=== PATIENT | male | born 1995 | race Caucasian/White ===

== ENCOUNTER 2019-11-08 06:02 | Inpatient (IN) | payer OTHER ==
[2019-11-08] MEDS ORDERED: Lidocaine 1% PF 5 ML VIAL ONE ×2 (06:16→10:34)
[2019-11-08 06:39] LABS: #Lymphocytes 1.2 thou/uL (1.20-3.40); #Monocytes 0.9 thou/uL (0.11-0.59); #Neutrophils 10.3 thou/uL (1.40-6.50); %Basophils 0.1 % (0.0-1.0); %Eosinophils 0.3 % (0.0-10.0); %Lymphocytes 9.9 % (21.0-51.0); %Monocytes 7.3 % (0.0-10.0); %Neutrophils 82.3 % (42.0-75.0); Hemoglobin 14.4 g/dL (14.0-18.0); Mean Corpuscular HGB CONC 34.5 g/dL (32.0-36.0); Mean Corpuscular Hemoglobin 29.8 pg (27.0-31.0); Mean Corpuscular Volume 86.2 fL (78.0-98.0); Mean Platelet Volume 9.1 fL (7.4-10.4); Platelet Count 218 thou/uL (130-400); RBC Distribution Width 10.9 % (11.5-14.5); Red Blood Cell (RBC) Count 4.84 mill/uL (4.70-6.10); White Blood Cell (WBC) Count 12.5 thou/uL (4.8-10.8)
[2019-11-08 06:44] LABS: PTT 25.1 SEC (22.9-36.1); Prothrombin Time 13.5 SEC (12.0-14.7)
[2019-11-08 07:02] LABS: ALT (SGPT) 41 U/L (8-55); AST (SGOT) 69 U/L (5-34); Albumin 4.5 g/dL (3.5-5.0); Alcohol 214 mg/dL (Less than 10); Alkaline Phosphatase 75 U/L (40-110); Anion Gap 15 mmol/L (10-20); BUN (Urea Nitrogen) 10 mg/dL (8.9-20.6); Bilirubin, Total 0.2 mg/dL (0.2-1.2); Calc. Creatinine Clearance 0 mL/min (70-130); Calcium 8.4 mg/dL (7.8-10.44); Carbon Dioxide 27 mmol/L (22-29); Chloride 103 mmol/L (98-107); Estimated GFR-MDRD 81; Globulin 2.4 g/dL (2.4-3.5); Glucose 115 mg/dL (70-105); Lipase 27 U/L (8-78); Potassium 3.8 mmol/L (3.5-5.1); Protein, Total 6.9 g/dL (6.0-8.3); Sodium 141 mmol/L (136-145)
[2019-11-08] MEDS ORDERED: Adacel (T-DAP) 0.5 ML SYRINGE ONE (07:03)
[2019-11-08] MEDS ORDERED: Bacitracin 1 PK ONE (07:48)
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
--- NOTE | 2019-11-08 08:00 | RAD ---
XR Forearm Lt 2 View STANDARD History: Deformity Comparison: None. Findings: Intra-articular fracture, sagittally oriented, through the distal humeral condyles. The for earm itself is intact. Impression: Intact for with fracture through the distal humeral metadiaphysis extending through the a rticular surface between the capitellum and trochlea.
--- NOTE | 2019-11-08 08:04 | RAD ---
XR Humerus Lt 2 View STANDARD History: Deformity Comparison: None. Findings: Intra-articular fracture distal humerus in medial sagittal orientation with fragmentary tra ns trochlear component. Impression: Intra-articular fracture distal humerus medial sagittal orientation with fragmentary mayo s trochlear extension.
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
[2019-11-08] MEDS ORDERED: Dextrose 5% in Water 1,000 ML IV PRN (09:04)
[2019-11-08] MEDS ORDERED: Dextrose 50% Abboject 50 ML SYRINGE SLOW IVP PRN (09:04)
[2019-11-08] MEDS ORDERED: Morphine 4 MG/ML VIAL SLOW IVP PRN (09:04)
[2019-11-08] MEDS ORDERED: Ondansetron PF 4 MG/2 ML Vial IVP PRN (09:04)
[2019-11-08] MEDS ORDERED: hydrALAZINE 20 MG/ML VIAL SLOW IVP PRN (09:04)
[2019-11-08] MEDS ORDERED: Morphine 2 MG/ML SYRINGE SLOW IVP PRN (09:04)
[2019-11-08 09:08] LABS: Bacteria/HPF None Seen HPF (None Seen); Bilirubin Negative (Negative); Blood, Urine Trace (Negative); Clarity Clear (Clear); Glucose, Urine (Dipstick) Normal (Negative); Leukocyte Negative Leu/uL (Negative); Nitrite Negative (Negative); Protein, Urine (Dipstick) Negative (Neg-Trace); RBC/HPF 0-3 HPF (0-3); Squamous Epithelial 0-3 HPF (0-3); Urobilinogen Normal mg/dL (Less than 2); WBC/HPF 0-3 HPF (0-3)
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
--- NOTE | 2019-11-08 09:40 | RAD ---
LEFT ELBOW 2 VIEWS: INDICATION: Left arm pain. FINDINGS: Since the comparison examination, there has been interval placement of a posterior splint involving t he left elbow. The supracondylar and intercondylar distal left humeral fracture is not appreciably c hanged in position when compared to a forearm radiograph evaluation dated 11/08/2019. Soft tissue swel ling is seen involving the left elbow. IMPRESSION: Comminuted supracondylar and intercondylar distal left humeral fracture with interval placement of a posterior splint. POS: OFF
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
[2019-11-08 10:15] LABS: Lactic Acid 2.5 mmol/L (0.5-2.2)
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
[2019-11-08] MEDS ORDERED: Rocuronium Bromide 10 MG/ML (10ML VIAL) ONE (10:34)
[2019-11-08] MEDS ORDERED: Ondansetron PF 4 MG/2 ML Vial ONE (10:34)
[2019-11-08] MEDS ORDERED: PROPOFOL 200 MG/20 ML VIAL ONE (10:34)
[2019-11-08] MEDS ORDERED: Ketorolac Tromethamine 30 MG/ML VIAL ONE (10:34)
[2019-11-08 10:40] LABS: Amphetamine Not Detected (NotDetected); Barbiturates Screen Not Detected (NotDetected); Benzodiazepine Screen Not Detected (NotDetected); Cocaine Metabolite Screen Not Detected (NotDetected); Medtox Control Line Valid? VALID (VALID); Medtox Reader # READER 4; Methadone Not Detected (NotDetected); Methamphetamine Not Detected (NotDetected); Opiate Screen Not Detected (NotDetected); Oxycodone Screen Not Detected (NotDetected); Phencyclidine (PCP) Not Detected (NotDetected); THC/Cannabinoid Screen Not Detected (NotDetected); Tricyclic Screen Not Detected (NotDetected)
[2019-11-08] MEDS ORDERED: CEFAZOLIN 2 GM in Premix Bag 1 BAG IVPB SCH (11:15)
[2019-11-08 11:30] VITALS: BMI 28.7
[2019-11-08] MEDS ORDERED: Bupivacaine PF 0.5% 30 ML VIAL ONE (12:17)
[2019-11-08] MEDS ORDERED: Lidocaine 1% w/Epinephrine 1:100K 20 ML VIAL ONE (12:17)
[2019-11-08] MEDS ORDERED: Fentanyl 100 MCG/2 ML VIAL ONE ×2 (12:58→13:47)
--- NOTE | 2019-11-08 13:47 | PRG ---
DATE OF SERVICE: 11/08/2019 I returned to the hospital to examine Mr. Lopez. He is currently under anesthesia having his elbow operated upon. I am going to follow up with Mr. Lopez in the early hours of the morning tomorrow. His transverse process fractures need no treatment whatsoever. His widening of the interspinous ligament between T12 and L1 and the question of facet injury can be treated with extension bracing. The joint extension brace is least bulky and will provide extension between the chest and pelvis. This can be applied supine. If it is applied sitting, he will need to be reminded to be in extension while it is being applied. If he is resting in bed, he does not need it at all. CT examination of the brain is negative. Cervical spine is negative and the rest of the thoracic and lumbar spine is negative other than the aforementioned injuries. When he is no longer inebriated and not under the influence of anesthesia, then his cervical spine can be cleared either by the Trauma Service or by me tomorrow morning. Job ID: [id number]
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
--- NOTE | 2019-11-08 15:22 | RAD ---
LEFT ELBOW TWO VIEWS: INDICATIONS: History of distal left humerus fracture. COMPARISON: 11/08/2019 at 6:36 a.m. FINDINGS: Since the comparison examination there has been interval open reduction and internal fixation of the comminuted supracondylar and distal humerus fracture with an intercondylar split. Instrumentation pro jects in the expected position without gross evidence of complication. IMPRESSION: Interval open reduction and internal fixation of the distal left humerus fracture. POS: OFF
[2019-11-08] MEDS ORDERED: Iopamidol-370 76% 500 ML 1 ML ONE (15:32)
[2019-11-08] MEDS ORDERED: Ondansetron HCl/PF 4 MG/2 ML Vial IVP PRN (15:51)
[2019-11-08] MEDS ORDERED: Promethazine HCl 25 MG/ML VIAL IM PRN (15:51)
[2019-11-08] MEDS ORDERED: Promethazine HCl 25 MG/ML VIAL SLOW IVP PRN (15:51)
[2019-11-08] MEDS ORDERED: traMADol HCl 50 MG TAB PO PRN ×2 (16:17)
[2019-11-08] MEDS: Sodium Chloride 0.9% 1,000 ML IV SCH ×2 (17:29→17:31)
[2019-11-08] MEDS: Acetaminophen 500 MG TAB PO SCH ×2 (17:32→23:41)
[2019-11-08] MEDS: Morphine 4 MG/ML VIAL SLOW IVP PRN ×2 (17:40→22:01)
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
[2019-11-08] MEDS: Gabapentin 300 MG CAP PO SCH (20:31)
[2019-11-08] MEDS: CEFAZOLIN 2 GM in Premix Bag 1 BAG IVPB SCH (20:31)
[2019-11-08] MEDS: Senokot S 8.6-50 MG TAB PO SCH (20:33)
[2019-11-08] MEDS ORDERED: Famotidine/PF 20 mg/2ml Vial SLOW IVP SCH (21:00)
[2019-11-08] MEDS ORDERED: Famotidine 20 MG TAB PO SCH (21:00)
[2019-11-08] MEDS: Ibuprofen 800 MG TAB PO SCH (21:31)
[2019-11-08] MEDS: Cyclobenzaprine 10 MG TAB PO PRN (22:47)
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
[2019-11-08] MEDS: traMADol HCl 50 MG TAB PO SCH (23:41)
[2019-11-09] MEDS: Sodium Chloride 0.9% 1,000 ML IV SCH (01:06)
[2019-11-09] MEDS: CEFAZOLIN 2 GM in Premix Bag 1 BAG IVPB SCH (03:36)
[2019-11-09 04:04] LABS: #Eosinphils 0.1 thou/uL (0.0-0.7); #Lymphocytes 1.5 thou/uL (1.20-3.40); #Monocytes 0.5 thou/uL (0.11-0.59); #Neutrophils 2.8 thou/uL (1.40-6.50); %Basophils 0.4 % (0.0-1.0); %Eosinophils 2.1 % (0.0-10.0); %Monocytes 10.9 % (0.0-10.0); %Neutrophils 56.6 % (42.0-75.0); Hemoglobin 11.5 g/dL (14.0-18.0); Mean Corpuscular HGB CONC 34.7 g/dL (32.0-36.0); Mean Corpuscular Hemoglobin 30.5 pg (27.0-31.0); Mean Corpuscular Volume 87.8 fL (78.0-98.0); Mean Platelet Volume 8.8 fL (7.4-10.4); Platelet Count 151 thou/uL (130-400); RBC Distribution Width 10.9 % (11.5-14.5); Red Blood Cell (RBC) Count 3.76 mill/uL (4.70-6.10); White Blood Cell (WBC) Count 4.9 thou/uL (4.8-10.8)
[2019-11-09 04:29] LABS: Lactic Acid 0.8 mmol/L (0.5-2.2)
[2019-11-09 04:36] LABS: Anion Gap 10 mmol/L (10-20); BUN (Urea Nitrogen) 11 mg/dL (8.9-20.6); Calc. Creatinine Clearance 195 mL/min (70-130); Calcium 7.7 mg/dL (7.8-10.44); Carbon Dioxide 27 mmol/L (22-29); Chloride 108 mmol/L (98-107); Estimated GFR-MDRD Greater than 90; Glucose 95 mg/dL (70-105); Magnesium 1.6 mg/dL (1.6-2.6); Phosphorus 3.2 mg/dL (2.3-4.7); Potassium 3.7 mmol/L (3.5-5.1); Sodium 141 mmol/L (136-145)
[2019-11-09] MEDS: Ibuprofen 800 MG TAB PO SCH (05:52)
[2019-11-09] MEDS: Acetaminophen 500 MG TAB PO SCH ×4 (05:52→20:28)
[2019-11-09] MEDS: traMADol HCl 50 MG TAB PO SCH (05:52)
[2019-11-09] MEDS: Morphine 4 MG/ML VIAL SLOW IVP PRN (06:43)
[2019-11-09] MEDS ORDERED: Magnesium 2 GM/50 ML 2 GM in Premix Bag 1 BAG IVPB SCH (07:45)
[2019-11-09] MEDS ORDERED: Potassium Phosphate 15 MMOL in Sodium Chloride 0.9% 250 ML 250 ML IVPB SCH (07:45)
[2019-11-09] MEDS ORDERED: HYDROcodone/Acetaminophen 10/325 mg Tablet PO PRN (08:12)
[2019-11-09] MEDS ORDERED: Ketorolac Tromethamine 30 MG/ML VIAL IVP SCH (08:15)
[2019-11-09] MEDS ORDERED: FLU VACC QS2019-20(6MOS UP)/PF 60 MCG/0.5 ML SYRINGE IM ONE (09:00)
[2019-11-09] MEDS: Gabapentin 300 MG CAP PO SCH ×3 (09:18→20:29)
[2019-11-09] MEDS: Senokot S 8.6-50 MG TAB PO SCH ×2 (09:19→20:29)
[2019-11-09] MEDS: Polyethylene Glycol 3350 17 GM Packet PO SCH (09:19)
--- NOTE | 2019-11-09 10:26 | RAD ---
PORTABLE CHEST ONE VIEW: 11/09/2019 5:01 a.m. HISTORY: Bilateral pulmonary contusions and tiny right pneumothorax. COMPARISON: 11/08/2019 FINDINGS: The heart size is normal. There is continued mild elevation of the right hemidiaphragm. No lobar cons olidation, definite pneumothorax or large effusions are seen. POS: [facility]
[2019-11-09] MEDS: Ketorolac Tromethamine 30 MG/ML VIAL IVP SCH ×3 (11:54→23:17)
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
[2019-11-09] MEDS ORDERED: traMADol HCl 50 MG TAB PO SCH (12:00)
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
[2019-11-09] MEDS: HYDROcodone/Acetaminophen 10/325 mg Tablet PO PRN ×2 (17:26→22:31)
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
[2019-11-09] MEDS: Enoxaparin Sodium 30 MG/0.3 ML SYRINGE SC SCH (20:28)
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
[2019-11-10] MEDS: Acetaminophen 325 MG TAB PO SCH ×4 (03:16→20:50)
[2019-11-10] MEDS: HYDROcodone/Acetaminophen 10/325 mg Tablet PO PRN ×3 (04:26→16:26)
[2019-11-10 05:31] LABS: #Eosinphils 0.1 thou/uL (0.0-0.7); #Lymphocytes 0.9 thou/uL (1.20-3.40); #Monocytes 0.5 thou/uL (0.11-0.59); #Neutrophils 3.4 thou/uL (1.40-6.50); %Basophils 0.7 % (0.0-1.0); %Lymphocytes 17.1 % (21.0-51.0); %Monocytes 10.3 % (0.0-10.0); %Neutrophils 68.9 % (42.0-75.0); Hemoglobin 11.1 g/dL (14.0-18.0); Mean Corpuscular HGB CONC 34.3 g/dL (32.0-36.0); Mean Corpuscular Hemoglobin 30.2 pg (27.0-31.0); Mean Corpuscular Volume 88.1 fL (78.0-98.0); Platelet Count 168 thou/uL (130-400); RBC Distribution Width 10.8 % (11.5-14.5); Red Blood Cell (RBC) Count 3.69 mill/uL (4.70-6.10)
[2019-11-10] MEDS: Ketorolac Tromethamine 30 MG/ML VIAL IVP SCH ×3 (05:45→17:55)
[2019-11-10 05:57] LABS: Anion Gap 13 mmol/L (10-20); BUN (Urea Nitrogen) 7 mg/dL (8.9-20.6); Calc. Creatinine Clearance 180 mL/min (70-130); Calcium 8.2 mg/dL (7.8-10.44); Carbon Dioxide 26 mmol/L (22-29); Chloride 105 mmol/L (98-107); Estimated GFR-MDRD Greater than 90; Glucose 121 mg/dL (70-105); Magnesium 1.7 mg/dL (1.6-2.6); Phosphorus 1.6 mg/dL (2.3-4.7); Potassium 3.6 mmol/L (3.5-5.1); Sodium 140 mmol/L (136-145)
[2019-11-10] MEDS ORDERED: Potassium Phosphate 30 MMOL in Sodium Chloride 0.9% 500 ML IVPB SCH (06:30)
[2019-11-10] MEDS ORDERED: Magnesium 2 GM/50 ML 2 GM in Premix Bag 1 BAG IVPB SCH (08:00)
--- NOTE | 2019-11-10 08:01 | RAD ---
XR Chest 1 View Portable HISTORY: Persistent fever and shallow breathing COMPARISON: Previous day FINDINGS: The heart size is normal. The lungs are well expanded without focal areas of consolidation, pneumothorax or pleural effusions. IMPRESSION: No radiographic evidence of acute cardiopulmonary process.
[2019-11-10] MEDS: Cyclobenzaprine 10 MG TAB PO PRN ×2 (08:25→16:26)
[2019-11-10] MEDS: Gabapentin 300 MG CAP PO SCH ×3 (08:25→20:50)
[2019-11-10] MEDS: Senokot S 8.6-50 MG TAB PO SCH ×2 (08:25→20:50)
[2019-11-10] MEDS: Enoxaparin Sodium 30 MG/0.3 ML SYRINGE SC SCH ×2 (08:25→20:51)
[2019-11-10] MEDS: Polyethylene Glycol 3350 17 GM Packet PO SCH (08:25)
[2019-11-10 09:17] LABS: Bacteria/HPF None Seen HPF (None Seen); Bilirubin Negative (Negative); Blood, Urine Negative (Negative); Clarity Clear (Clear); Glucose, Urine (Dipstick) Normal (Negative); Leukocyte Negative Leu/uL (Negative); Nitrite Negative (Negative); Protein, Urine (Dipstick) 100 mg/dL (Neg-Trace); Squamous Epithelial None Seen HPF (0-3); Urobilinogen Normal mg/dL (Less than 2)
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
[2019-11-11] MEDS: Ketorolac Tromethamine 30 MG/ML VIAL IVP SCH (00:17)
[2019-11-11] MEDS: Acetaminophen 325 MG TAB PO SCH ×4 (03:55→20:45)
[2019-11-11] MEDS: Cyclobenzaprine 10 MG TAB PO PRN (04:01)
[2019-11-11 05:10] LABS: Anion Gap 12 mmol/L (10-20); BUN (Urea Nitrogen) 6 mg/dL (8.9-20.6); Calc. Creatinine Clearance 195 mL/min (70-130); Calcium 8.3 mg/dL (7.8-10.44); Carbon Dioxide 29 mmol/L (22-29); Chloride 104 mmol/L (98-107); Estimated GFR-MDRD Greater than 90; Glucose 97 mg/dL (70-105); Magnesium 1.8 mg/dL (1.6-2.6); Phosphorus 3.3 mg/dL (2.3-4.7); Potassium 3.6 mmol/L (3.5-5.1); Sodium 141 mmol/L (136-145)
[2019-11-11 05:49] LABS: Band 5 % (5-11); Eosinophils 3 % (0-10); Hemoglobin 10.1 g/dL (14.0-18.0); Lymphocytes 35 % (21-51); MDiff Complete? YES; Mean Corpuscular HGB CONC 34.3 g/dL (32.0-36.0); Mean Corpuscular Hemoglobin 30.5 pg (27.0-31.0); Mean Corpuscular Volume 88.9 fL (78.0-98.0); Mean Platelet Volume 9.1 fL (7.4-10.4); Monocytes 10 % (0-10); Neutrophil 47 % (42-75); Platelet Count 170 thou/uL (130-400); RBC Distribution Width 10.9 % (11.5-14.5); Red Blood Cell (RBC) Count 3.32 mill/uL (4.70-6.10); White Blood Cell (WBC) Count 5.1 thou/uL (4.8-10.8)
[2019-11-11] MEDS ORDERED: Ibuprofen 600 MG TAB PO SCH ×2 (06:00→14:00)
[2019-11-11] MEDS ORDERED: PHOS-NAK 1 PKT PACK PO SCH (07:45)
[2019-11-11] MEDS ORDERED: Potassium Chloride 20 MEQ TAB PO SCH (07:45)
[2019-11-11] MEDS: Senokot S 8.6-50 MG TAB PO SCH ×2 (09:30→20:45)
[2019-11-11] MEDS: HYDROcodone/Acetaminophen 10/325 mg Tablet PO PRN (09:31)
[2019-11-11] MEDS: Gabapentin 300 MG CAP PO SCH ×3 (09:31→20:45)
[2019-11-11] MEDS: Polyethylene Glycol 3350 17 GM Packet PO SCH (09:32)
[2019-11-11] MEDS: Enoxaparin Sodium 30 MG/0.3 ML SYRINGE SC SCH ×2 (09:32→20:45)
[2019-11-11] MEDS ORDERED: HYDROcodone/Acetaminophen 10/325 mg Tablet PO PRN (10:38)
[2019-11-11] MEDS: traMADol HCl 50 MG TAB PO SCH ×3 (11:34→22:24)
[2019-11-11] MEDS ORDERED: Ibuprofen 800 MG TAB PO SCH (15:15)
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
[2019-11-11] MEDS: Ibuprofen 800 MG TAB PO SCH (22:24)
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
[2019-11-12] MEDS: Acetaminophen 325 MG TAB PO SCH ×4 (03:25→20:19)
[2019-11-12] MEDS: traMADol HCl 50 MG TAB PO SCH ×4 (05:39→22:34)
[2019-11-12] MEDS: Ibuprofen 800 MG TAB PO SCH ×3 (05:40→22:34)
[2019-11-12] MEDS: Senokot S 8.6-50 MG TAB PO SCH ×2 (08:28→20:26)
[2019-11-12] MEDS: Polyethylene Glycol 3350 17 GM Packet PO SCH (08:28)
[2019-11-12] MEDS: Gabapentin 300 MG CAP PO SCH ×3 (08:28→20:19)
[2019-11-12] MEDS: Enoxaparin Sodium 30 MG/0.3 ML SYRINGE SC SCH ×2 (08:28→20:19)
--- NOTE | 2019-11-12 13:38 | CT ---
CT Abdomen Pelvis W Con History: Pain Comparison: CT chest abdomen pelvis November 08, 2019 Findings: Partial resolution of pulmonary contusions. Spleen, liver, gallbladder, pancreas are unremarkable. Slight interval increase in fluid along the le ft oblique musculature indicating resolving hematoma. There is hematoma along the superior aspect left gluteus muscle fascia. There fluid the superficial and deep fat superficial to the right spinal musculature. Small foci of s ubcutaneous emphysema on the right and left lower abdominal wall likely injection related. No free intraperitoneal gas or fluid. Small volume gas within the urinary bladder. The appendix is vi sualized and is normal. No further height loss of the L1 fracture. There continues to be mild distraction of the T12/L1 facet joints likely reflecting a facet joint capsular injury. The L1 superior articular process fractures are similar. No acute superimposed fracture. Left T12-L1 transverse process fractures are s imilar. Chronic left L5 pars interarticularis defect. Impression: 1. No new acute superimposed abnormality of the abdomen or pelvis. 2. Slight interval size increase of fluid between the left external anterior oblique muscles likely s equelae of partial tearing from the left ilium. 3. Slight interval size increase of hematoma between the left gluteus fascia and ileum with a few foc al areas of high density suggesting clotted blood. 4. Partial resolution of pulmonary contusions.
[2019-11-12] MEDS ORDERED: Iopamidol 370 76% 100 ML VIAL ONE (16:15)
[2019-11-12] MEDS: Sulfameth/Trimethoprim SS 400-80MG TAB PO SCH (20:19)
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
[2019-11-13] MEDS: Acetaminophen 325 MG TAB PO SCH ×3 (03:37→14:31)
[2019-11-13] MEDS: Ibuprofen 800 MG TAB PO SCH ×2 (05:53→14:32)
[2019-11-13] MEDS: traMADol HCl 50 MG TAB PO SCH ×2 (05:53→12:41)
[2019-11-13] MEDS: Senokot S 8.6-50 MG TAB PO SCH (08:43)
[2019-11-13] MEDS: Gabapentin 300 MG CAP PO SCH ×2 (08:43→14:32)
[2019-11-13] MEDS: Enoxaparin Sodium 30 MG/0.3 ML SYRINGE SC SCH (08:43)
[2019-11-13] MEDS: Sulfameth/Trimethoprim SS 400-80MG TAB PO SCH (08:44)
[2019-11-13] MEDS: Polyethylene Glycol 3350 17 GM Packet PO SCH (08:47)
[2019-11-13 12:10] VITALS: TEMP 98.4
[2019-11-13 13:32] VITALS: BP 149/99
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
== END 2019-11-13 14:38 | disposition home or self-care (01) | DRG 492 ==
LOC: ERS 06:02 → IMCU/EMU 10:34 → SURG A 11-09 11:41
PROVIDERS: ADMIT Surgery; ATTEND Surgery
PROC: 0PSG04Z Reposition Left Humeral Shaft with Internal Fixation Device, Open Approach (ICD-10-PCS; principal; 2019-11-08)
DX: S42.495A Other nondisplaced fracture of lower end of left humerus, initial encounter for closed fracture (principal); R40.2122 Coma scale, eyes open, to pain, at arrival to emergency department; R40.2222 Coma scale, best verbal response, incomprehensible words, at arrival to emergency department; S02.32XA Fracture of orbital floor, left side, initial encounter for closed fracture; S32.019A Unspecified fracture of first lumbar vertebra, initial encounter for closed fracture; S32.029A Unspecified fracture of second lumbar vertebra, initial encounter for closed fracture; S22.089A Unspecified fracture of T11-T12 vertebra, initial encounter for closed fracture; S27.322A Contusion of lung, bilateral, initial encounter; S27.0XXA Traumatic pneumothorax, initial encounter; J98.11 Atelectasis; N39.0 Urinary tract infection, site not specified; R40.2352 Coma scale, best motor response, localizes pain, at arrival to emergency department; F10.129 Alcohol abuse with intoxication, unspecified; Y90.7 Blood alcohol level of 200-239 mg/100 ml; V29.9XXA Motorcycle rider (driver) (passenger) injured in unspecified traffic accident, initial encounter; S06.0X0A Concussion without loss of consciousness, initial encounter; S33.5XXA Sprain of ligaments of lumbar spine, initial encounter; T14.8XXA Other injury of unspecified body region, initial encounter; H53.2 Diplopia; H50.89 Other specified strabismus; R50.82 Postprocedural fever; R00.0 Tachycardia, unspecified; E87.6 Hypokalemia; E83.42 Hypomagnesemia
CPT/HCPCS: 36415; 36416; 51702; 70450; 70486; 71045; 71260; 72125; 72170; 74177; 76000; 80048; 80053; 80306; 80307; 81003; 81015; 83605; 83690; 83735; 84100; 85007; 85025; 85027; 85610; 85730; 86850; 86900; 86901; 87040; 90471; 90686; 90715; 96360; 96361; C1713; G0008; G0390; J0690; J1650; J1885; J2001; J2270; J2405; J2704; J3010; J3475; J7050; L0484; Q9967; S0020